=== PATIENT | male | born 1960 | race Caucasian/White ===

== ENCOUNTER → 2023-10-29 13:07 | Outpatient (REF) | payer MEDICARE, OTHER, SELFPAY | LOC: RAD 13:07 | PROVIDERS: ATTENDING PHYSICIAN Family Medicine | DX: S62.306D Unspecified fracture of fifth metacarpal bone, right hand, subsequent encounter for fracture with routine healing (principal) | CPT/HCPCS: 73130 ==

== ENCOUNTER 2024-12-03 05:09 | Emergency (ER) | payer MEDICARE, OTHER, SELFPAY ==
[2024-12-03 05:17] VITALS: BP 158/89; BMI 28.5
--- NOTE | 2024-12-03 06:13 | ED.GENMED ---
History of Present Illness
General
Chief Complaint: Seizure
Time Seen by Provider: 12/03/24 06:13
History of Present Illness
History of Present Illness:
TIME OF INITIAL ENCOUNTER: 6:15 AM
HPI: The patient has a history of early onset dementia which is relatively advanced. He lives at home with his . They were sleeping in the same bed to go this morning where noted seizure-like activity lasted for about 30 seconds. His
eyes rolled back. There is no new incontinence (normally is incontinent), and there was no tongue bite suazo. He seemed out of it for about 20 minutes and then improved. The patient cannot provide any meaningful history.
EXAM:
GENERAL: Appears in no distress, eyes are open
HEENT: Moist oral mucosa
CARDIOVASCULAR: Regular rate and rhythm
PULMONARY: No respiratory distress, breathing is nonlabored, equal and clear breath sounds
ABDOMEN: Soft and nontender with no peritoneal signs
NEUROLOGIC: The patient has evidence of dementia, not oriented to month or place, strength is equal in all extremities, does not follow any commands
EXTREMITIES: Moves all extremities equally, no tenderness, no edema
PYSCHIATRIC: Very limited historian, poor insight and judgment, flat affect
NUMBER AND COMPLEXITY OF PROBLEMS ADDRESSED AT THE ENCOUNTER
� Chronic conditions affecting care: Early onset Alzheimer's, atrial fibrillation status post ablation
� Acute Exacerbation and/or Progression of Chronic Illness: This is an acute problem
� Differential Diagnosis includes: First-time seizure, syncopal event, hypoglycemia, electrolyte abnormality
AMOUNT AND/OR COMPLEXITY OF DATA TO BE REVIEWED AND ANALYZED
� I performed an independent evaluation of and my interpretation is:
EKG: Sinus 72, normal axis, right bundle branch block
CT: CAT scan of the brain shows no acute abnormality
X-rays:
Laboratory Studies: CBC unremarkable, chemistries also unremarkable.
Other:
� Review of other/old records: I reviewed records. The patient was admitted with 'acute toxic metabolic encephalopathy' in May 2023. At that time the patient had increasing confusion
� Clinical information was obtained by an independent historian: I spoke to the at bedside
� Prescriptions/Medications Considered but not given:
� Further testing considered but not performed:
RISK OF COMPLICATIONS AND/OR MORBIDITY OR MORTALITY OF PATIENT MANAGEMENT
� Social determinants of health affecting care:
� Discussion with other providers: I discussed case with Dr. Mondragon who thinks 'it would be reasonable to start him on levetiracetam at 1000 mg twice daily
� Escalation of care including admission/observation vs risk of discharge considered: Early onset dementia since his early 50s now advanced. Was at home in bed with , had 30sec sz like activity, extremities shaking, eyes
rolled back. No new urinary incontinence nor tongue bite suazo. Gave ativan to facilitate CT which was negative. Normal bicarb. Was here w/ 'toxic metabolic encephalopathy' last year. No med changes. I don't really see anything to keep him
for. Afebrile and WBC 3.6. says they see [facility] virtually 2x per year and would like to see someone closer.
ANY OTHER UPDATES:
8:40 AM: I reassessed patient. The patient appears more sedate after given Ativan. However room air sats are 97% with normal respiratory rate. Never had any seizure-like activity here
Past History
Past History
ED Past Medical History: Other (dementia=Alzhemiers, Left foot drop, Pleural effusions, IBS, Renal calculus, Glaucoma) and Other (Pleural effusion status post rib fractures)
ED Past Surgical History: Orthopedic (L4-L5 surgery, Total right knee replacement) and Other (cataracts, )
Social History
Tobacco: Non-smoker
Alcohol: None
Drug: None
Personal:
Living: with family
Employment: Retired
Family History
Family History: Other
Phy Exam
Physical Exam
Physical Exam:
See HPI
Course
Orders/Labs/Results
Orders:
Orders
12/03/24 05:48
CMP [Comprehensive Metabolic Panel] Urgent
Complete Blood Count/With Diff Urgent
12/03/24 06:30
CT Head W/o Iv Contrast Urgent
Comment:
Reason For Exam: first time sz? h/o early dementia
Lorazepam [Ativan] 1 mg IV NOW STA
12/03/24 06:32
Electrocardiogram (*1) Urgent
Reason for Study: Syncope
EKG- Treatment ONCE
12/03/24 07:10
Electrocardiogram (*1) Urgent
Reason for Study: Other
Other Reason for Exam: seizure
12/03/24 07:11
EKG- Treatment ONCE
Abnormal Lab Results
12/03/24
05:48
MPV 11.0 H fL
(7.4-10.4)
Absolute Monos (auto) 0.7 H 10^3/uL
(0.1-0.6)
Lymphocytes % 16.6 L %
(20.5-51.1)
12/03/24 05:48
12/03/24 05:48
Vital Signs
Initial and Last Documented VS:
Initial Vital Signs
Temp Pulse BP Pulse Ox
37.1 C 84 158/89 96
12/03/24 05:17 12/03/24 05:17 12/03/24 05:17 12/03/24 05:17
Last Documented Vital Signs
Temp Pulse Resp BP Pulse Ox
37.1 C 69 16 104/60 100
12/03/24 05:17 12/03/24 08:07 12/03/24 08:07 12/03/24 08:00 12/03/24 07:49
*Critical Care Note
Total Time (30-74mins, 75-104mins- exclusive of procedures): Not Applicable
ED Attending Note
-
Portions of this chart may have been created with voice recognition software.� Occasional wrong word or��sound alike� substitutions may have occurred due to the inherent limitations of voice recognition software.
Discharge Plan
Departure
Patient Disposition: Home (Routine Discharge)
Date of Disposition: 12/03/24
Time of Disposition: 08:39
Patient with high blood pressure during this ER visit?: Yes
Discharge Problem:
Seizure
Instructions: Seizures, Adult (DC)
Prescriptions:
New
levetiracetam 1,000 mg tablet
1,000 mg PO BID Qty: 60 0RF
No Action
donepezil 10 MG tablet
10 mg PO HS
vitamin E 400 UNIT capsule
400 unit PO DAILY
cholecalciferol (vitamin D3) 5,000 UNIT tablet,disintegrating
5,000 unit PO DAILY
memantine 28 MG capsule,sprinkle,ER 24hr
28 mg PO HS
olanzapine 2.5 mg Tablet
2.5 mg PO HS
aspirin 81 mg Tablet,Chewable
81 mg PO DAILY
metoprolol succinate 25 mg Tablet Extended Release 24 Hr
25 mg PO BID
coenzyme Q10 30 mg Capsule
30 mg PO DAILY
mometasone 0.1 % Cream
1 applic TOPICAL DAILY
omega 8-lvt-afy-fish oil [Fish Oil] 1,000 mg (120 mg-180 mg) Capsule
1 cap PO BID
mecobalamin (vitamin B12) [B12 Active] 1,000 mcg Tablet,Chewable
1,000 mcg PO DAILY
Referrals:
Mary Kay Guerra MD [Non-Admitting Privileges] - As needed
UNKNOWN - PT DOES,NOT KNOW [Family Provider] -
Activity Restrictions/Additional Instructions:
The CAT scan of the brain shows no acute abnormality. The radiologist noted 'stable mild subcortical, deep, and periventricular white matter low-attenuation, compatible with changes of chronic small vessel ischemic disease'. Chemistry levels were
normal. White count and hemoglobin are normal. I did notify a neurologist here today, Dr. Brandt, who recommended trying Keppra 1000 mg twice daily (seizure medication) for now. He also recommends that you follow-up with the [facility]. I
did give the name of another local neurologist, Dr. Mary Kay Guerra.
Interventions
Interventions:
*Risk Screen - Suicide Last Done: 12/03/24 05:17
*General Assessment Last Done: 12/03/24 05:17
*Neglect/Abuse Screening Last Done: 12/03/24 05:17
*ED- Fall Risk Assessment Last Done: 12/03/24 07:22
*ED COVID-19 Vaccine History Last Done: 12/03/24 05:17
ED- Cardiac Assessment Last Done: 12/03/24 07:21
ED- Neurological Assessment Last Done: 12/03/24 07:21
ED- Pulmonary Assessment Last Done: 12/03/24 07:21
Discharge Date and Time
Print Language: EMIRATI
[2024-12-03] MEDS: ATIVAN 1 MG IV (06:32)
[2024-12-03 06:36] LABS: % Basophils 0.6 % (0-2); % Eosinophils 2.2 % (0-6); % Immature Granulocytes 0.3 % (0-0.5); % Lymphocytes 16.6 % (20.5-51.1); % Monocytes 8.4 % (1.7-9.3); % Neutrophils 71.9 % (42.2-75.2); Absolute Basophils 0.1 10^3/uL (0-0.2); Absolute Eosinophils 0.2 10^3/uL (0-0.7); Absolute Lymphocytes 1.3 10^3/uL (1.2-3.4); Absolute Monocytes 0.7 10^3/uL (0.1-0.6); Absolute Neutrophils 5.7 10^3/uL (1.4-6.5); Hematocrit 41.2 % (39.0-52.0); Hemoglobin 14.2 g/dL (13.0-18.0); Mean Corp Hgb Conc. 34.5 g/dL (33.0-37.0); Mean Corpuscular Volume 87.1 fL (80.0-94.0); Nucleated Red Blood Cells % 0 % (-); Platelet Count 178 10^3/uL (130-400); Red Blood Cell Count 4.73 10^6/uL (4.70-6.10); Red Cell Dist. Width 12.1 % (11.5-14.5); White Blood Cell Count 7.9 10^3/uL (4.8-10.8)
[2024-12-03 06:57] LABS: ALT (SGPT) 19 U/L (0-50); AST (SGOT) 23 U/L (17-59); Albumin 3.9 g/dl (3.5-5.0); Alkaline Phosphatase 62 U/L (38-126); Blood Urea Nitrogen 19 mg/dl (9-20); Calcium 9.3 mg/dl (8.4-10.2); Carbon Dioxide 26 mmol/L (22-30); Chloride 106 mmol/L (98-107); Estimated Creatinine Clearance 118 ml/min; Glucose 95 mg/dl (70-99); Potassium 4.2 mmol/L (3.5-5.1); Sodium 138 mmol/L (135-145); Total Bilirubin 0.9 mg/dl (0.2-1.3); Total Protein 6.4 g/dl (6.3-8.2); eGFR > 60.00
[2024-12-03 07:20] VITALS: BP 130/66
[2024-12-03 08:00] VITALS: BP 104/60
[2024-12-03 09:00] VITALS: BP 111/67
== END 2024-12-03 10:52 | disposition home or self-care (01) ==
LOC: EMR 05:09
PROVIDERS: Emergency Medicine; EMERGENCY PHYSICIAN Emergency Medicine
DX: R56.9 Unspecified convulsions (principal); R03.0 Elevated blood-pressure reading, without diagnosis of hypertension; I45.10 Unspecified right bundle-branch block; G30.0 Alzheimer's disease with early onset; F02.80 Dementia in other diseases classified elsewhere, unspecified severity, without behavioral disturbance, psychotic disturbance, mood disturbance, and anxiety; I48.91 Unspecified atrial fibrillation; M21.372 Foot drop, left foot; H40.9 Unspecified glaucoma; K58.9 Irritable bowel syndrome, unspecified; Z87.442 Personal history of urinary calculi; Z96.651 Presence of right artificial knee joint; Z79.82 Long term (current) use of aspirin
CPT/HCPCS: 99284; 96374; 70450; 80053; 85025; 93005

== ENCOUNTER 2025-06-17 14:18 | Emergency (ER) | payer MEDICARE, OTHER, SELFPAY ==
[2025-06-17 14:41] VITALS: BP 118/68
--- NOTE | 2025-06-17 14:44 | ED.GENMED ---
History of Present Illness
General
Chief Complaint: Change in Mental Status
Source: family
Time Seen by Provider: 06/17/25 14:30
History of Present Illness
History of Present Illness:
64-year-old male presents emergency department with reported change in mental status of concern to his . Patient has a history of early onset Alzheimer's. She states that at approximately 3 weeks ago she noticed a change in his mentation and
that he seemed to be 'lethargic disoriented and drooling'. She brought the patient to the primary care doctor who noted his lungs were clear and his pulse ox was 97%. The PCP gave the patient's antibiotic to use just in case the patient did
not get better. She did not give him these antibiotics because of patient spontaneously improved and was back to baseline. However, on Thursday evening, the patient seemed to be lethargic again. Overall she notes his urine seems darker than
usual without blood and it seems like he is urinating less than usual. After discussing this with the primary care doctor the decision was made to start the antibiotics on evening. Yesterday he seemed 'good all day'. However, this
morning she says he is not quite right. For example, he tipped gets up out of bed and walks across the room to get changed but he just sat on the bed and she changed him there. He also took a nap during the day today which is very unusual. When
he woke up from that nap he was walking around as usual and she thought he might be okay. However, he again started to 'nod off', causing her to be concerned that he may have a UTI that is not improving with the antibiotics. No history of fever,
chills, sweats, rhinorrhea. There is a slight cough noted which she thinks may be related to allergies. History very limited from patient given his history of dementia.
Past History
Past History
ED Past Medical History: Other (dementia=Alzhemiers, Left foot drop, Pleural effusions, IBS, Renal calculus, Glaucoma) and Other (Pleural effusion status post rib fractures)
ED Past Surgical History: Orthopedic (L4-L5 surgery, Total right knee replacement) and Other (cataracts, )
Social History
Tobacco: Non-smoker
Alcohol: None
Drug: None
Personal:
Living: with family
Employment: Retired
Family History
Family History: Other
Phy Exam
Physical Exam
Physical Exam:
GENERAL: Drowsy, eyes closed, will sometimes open, in no apparent distress
EYE: pupils equal and reactive, no photophobia
NECK: Supple, no significant adenopathy.
ENT: o/p clr, mmm.
CARDIAC: Regular rate and rhythm .
LUNGS: Clear breath sounds bilaterally, no acute respiratory distress, no wheezes/rales/rhonchi
ABDOMEN: Soft, without focal tenderness, no r/g
NEUROLOGICAL: Arousable but drowsy, does not follow commands, will spont speak at times, no facial droop
SKIN: Warm and dry, skin intact.
MUSCULOSKELETAL: No edema, well perfused.
PSYCH: Does not answer questions
Course
Orders/Labs/Results
Orders:
Orders
06/17/25 14:35
Complete Blood Count/With Diff Urgent
Comprehensive Metabolic Panel Urgent
Urinalysis Reflex To Culture Urgent
Date Specimen was Collected: 06/17/25
Time Specimen was Collected: 14:31
Urine Microscopic Reflex Cult Urgent
Urine Culture Urgent
SUNDEEP Source: U
Specimen Description:
Date Specimen was Collected: 06/17/25
Time Specimen was Collected: 14:31
06/17/25 14:43
CR Chest - 2 Views Urgent
Comment:
Reason For Exam: COUGH
06/17/25 15:00
COVID-19 Antigen Urgent
Source: Nasal Swab
Influenza A+B Rapid Molecular Urgent
SUNDEEP Source: Nasal Swab
Specimen Description:
Abnormal Lab Results
06/17/25
14:35
RBC 4.63 L 10^6/uL
(4.70-6.10)
MPV 11.5 H fL
(7.4-10.4)
Absolute Monos (auto) 0.8 H 10^3/uL
(0.1-0.6)
Lymphocytes % 16.6 L %
(20.5-51.1)
Monocytes % 11.7 H %
(1.7-9.3)
Urine Ketones 1+ A
(Negative)
Urine Urobilinogen 2+ A
(Neg - 1+)
Leukocyte Esterase Rfl 1+ A
(Negative)
Urine Bacteria (Reflex) Moderate A
(Negative)
Urine Albumin (Reflex) 1+ A
(Neg - Trace)
06/17/25 14:35
06/17/25 14:35
Vital Signs
Initial and Last Documented VS:
Initial Vital Signs
Temp Pulse Resp Pulse Ox
98.4 F 73 17 96
06/17/25 14:30 06/17/25 14:30 06/17/25 14:30 06/17/25 14:30
Last Documented Vital Signs
Temp Pulse Resp BP Pulse Ox
98.4 F 58 13 117/77 97
06/17/25 14:30 06/17/25 15:00 06/17/25 15:00 06/17/25 15:00 06/17/25 15:00
*Pulse Oximetry
SaO2: 96
Oxygen Mode of Delivery: Room air
Patient hypoxic: no
*Critical Care Note
Total Time (30-74mins, 75-104mins- exclusive of procedures): Not Applicable
Update Note
Update Note:
Patient presents to the Emergency Department with ___mental status change
Number and Complexity of Problems Addressed at the Encounter
� Chronic conditions affecting care:
� Acute Exacerbation and/or Progression of Chronic Illness:
� Differential Diagnosis includes: But not limited to COVID, flu, UTI, pneumonia, etc. etc.
Amount and/or Complexity of Data to be Reviewed and Analyzed
� I performed an independent evaluation of and my interpretation is:
EKG:
CT:
Xrays: Chest x-ray read by me unremarkable
Laboratory Studies: Unremarkable, no findings to suggest acute UTI
Other:
� Review of other/old records reveals:
� Clinical information was obtained by an independent historian: who is at bedside and offers medication list and full history
� Prescriptions/Medications Considered but not given:
� Further testing considered but not performed:
Risk of Complications and/or Morbidity or Mortality of Patient Management
� Social determinants of health affecting care:
� Discussion with other providers (PCP, Hospitalists, Consultants, etc):
� Escalation of care including admission/observation vs risk of discharge considered: Patient 4:41 PM is now awake and alert, interactive, at times laughs at jokes. states this is his baseline. Unclear specific reason for
patient's waxing and waning sleepiness however doubt acute intracranial process given no recent head injury, not on thinners, etc. No focal findings here. Workup unremarkable for acute event such as infection, electrolyte abnormality, etc.
would like to take patient home with close follow-up which is reasonable. Discussed with her importance of follow-up and reasons return to the ER.
ED Attending Note
-
Portions of this chart may have been created with voice recognition software.� Occasional wrong word or��sound alike� substitutions may have occurred due to the inherent limitations of voice recognition software.
Discharge Plan
Departure
Patient Disposition: Home (Routine Discharge)
Date of Disposition: 06/17/25
Time of Disposition: 16:40
Patient with high blood pressure during this ER visit?: No
Condition: Good
Discharge Problem:
Altered mental status
Instructions: Altered Mental Status (DC), Dementia (DC)
Prescriptions:
No Action
donepezil 10 MG tablet
10 mg PO HS
vitamin E 400 UNIT capsule
400 unit PO DAILY
cholecalciferol (vitamin D3) 5,000 UNIT tablet,disintegrating
5,000 unit PO DAILY
memantine 28 MG capsule,sprinkle,ER 24hr
28 mg PO HS
olanzapine 2.5 mg Tablet
2.5 mg PO HS
aspirin 81 mg Tablet,Chewable
81 mg PO DAILY
metoprolol succinate 25 mg Tablet Extended Release 24 Hr
25 mg PO BID
coenzyme Q10 30 mg Capsule
30 mg PO DAILY
mometasone 0.1 % Cream
1 applic TOPICAL DAILY
omega 6-iju-rxi-fish oil [Fish Oil] 1,000 mg (120 mg-180 mg) Capsule
1 cap PO BID
mecobalamin (vitamin B12) [B12 Active] 1,000 mcg Tablet,Chewable
1,000 mcg PO DAILY
levetiracetam 1,000 mg tablet
1,000 mg PO BID Qty: 60 0RF
Referrals:
Nicolette Maldonado DO [Family Provider, Family Practice] - Follow up in 2-3 days
Activity Restrictions/Additional Instructions:
IF TIANA DEVELOPS HIGH FEVER, REPEATED VOMITING, LETHARGY, TROUBLE BREATHING, OR OTHER WORRISOME SIGNS, PLEASE RETURN TO THE ER IMMEDIATELY !!
Interventions
Interventions:
*Risk Screen - Suicide Last Done: 06/17/25 14:39
*General Assessment Last Done: 06/17/25 14:39
*Neglect/Abuse Screening Last Done: 06/17/25 14:39
*ED- Fall Risk Assessment Last Done: 06/17/25 14:39
*ED COVID-19 Vaccine History Last Done: 06/17/25 14:39
*ED Influenza Vaccine History Last Done: 06/17/25 14:39
ED- Neurological Assessment Last Done: 06/17/25 14:41
Discharge Date and Time
Print Language: MALTESE
[2025-06-17 14:45] LABS: Hematocrit 41.4 % (39.0-52.0); Hemoglobin 13.8 g/dL (13.0-18.0); Mean Corp Hgb Conc. 33.3 g/dL (33.0-37.0); Mean Corpuscular Volume 89.4 fL (80.0-94.0); Nucleated Red Blood Cells % 0 % (-); Platelet Count 185 10^3/uL (130-400); Red Cell Dist. Width 11.8 % (11.5-14.5)
[2025-06-17 14:53] LABS: Urine Character Slightly Cloudy (Clear)
[2025-06-17 15:00] VITALS: BP 117/77
[2025-06-17 15:11] LABS: ALT (SGPT) 21 U/L (0-50); AST (SGOT) 23 U/L (17-59); Albumin 3.5 g/dl (3.5-5.0); Alkaline Phosphatase 54 U/L (38-126); Blood Urea Nitrogen 16 mg/dl (9-20); Calcium 9.2 mg/dl (8.4-10.2); Carbon Dioxide 29 mmol/L (22-30); Chloride 104 mmol/L (98-107); Glucose 74 mg/dl (70-99); Potassium 5.0 mmol/L (3.5-5.1); Sodium 137 mmol/L (135-145); Total Protein 6.5 g/dl (6.3-8.2); eGFR > 60.00
[2025-06-17 15:13] LABS: Urine Squamous Cell 0-2 /LPF (Few)
[2025-06-17 15:14] LABS: Urine Red Blood Cell 0-2 /HPF (0-2)
[2025-06-17 15:39] LABS: COVID-19 Antigen Negative (Negative)
== END 2025-06-17 20:00 | disposition home or self-care (01) ==
LOC: EMR 14:18
PROVIDERS: EMERGENCY PHYSICIAN Emergency Medicine; FAMILY PHYSICIAN Family Medicine
DX: R41.82 Altered mental status, unspecified (principal); G30.0 Alzheimer's disease with early onset; F02.80 Dementia in other diseases classified elsewhere, unspecified severity, without behavioral disturbance, psychotic disturbance, mood disturbance, and anxiety; H40.9 Unspecified glaucoma; K58.9 Irritable bowel syndrome, unspecified; Z96.651 Presence of right artificial knee joint
CPT/HCPCS: 99284; 71046; 80053; 81003; 81015; 85025; 87086; 87502; 87811

== ENCOUNTER 2025-06-20 18:31 | Inpatient (IN) | payer MEDICARE, OTHER, SELFPAY ==
[2025-06-20 13:49] VITALS: BP 122/88
[2025-06-20 13:52] VITALS: BMI 30.4
[2025-06-20 14:00] VITALS: BP 116/70
[2025-06-20 14:32] LABS: Hematocrit 42.0 % (39.0-52.0); Hemoglobin 14.4 g/dL (13.0-18.0); Mean Corp Hgb Conc. 34.3 g/dL (33.0-37.0); Mean Corpuscular Volume 88.2 fL (80.0-94.0); Nucleated Red Blood Cells % 0 % (-); Platelet Count 219 10^3/uL (130-400); Red Cell Dist. Width 11.6 % (11.5-14.5)
[2025-06-20 14:33] LABS: Urine Character Clear (Clear)
[2025-06-20 15:00] VITALS: BP 122/69
[2025-06-20 15:05] LABS: ALT (SGPT) 26 U/L (0-50); AST (SGOT) 43 U/L (17-59); Albumin 3.8 g/dl (3.5-5.0); Alkaline Phosphatase 51 U/L (38-126); Blood Urea Nitrogen 16 mg/dl (9-20); Calcium 9.1 mg/dl (8.4-10.2); Carbon Dioxide 26 mmol/L (22-30); Chloride 104 mmol/L (98-107); Estimated Creatinine Clearance > 125 ml/min; Glucose 101 mg/dl (70-99); Potassium 4.7 mmol/L (3.5-5.1); Sodium 137 mmol/L (135-145); Total Protein 6.9 g/dl (6.3-8.2); Urine Squamous Cell 0-2 /LPF (Few); eGFR > 60.00
[2025-06-20 15:06] LABS: Urine Red Blood Cell 0-2 /HPF (0-2); Urine White Cell 0-2 /HPF (0-5)
--- NOTE | 2025-06-20 15:21 | ED.GENMED ---
History of Present Illness
<Nidia Ortega PA-C - Last Filed: 06/20/25 21:51>
General
Chief Complaint: Change in Mental Status
Source: records and spouse
Exam Limitations: dementia
Time Seen by Provider: 06/20/25 15:02
History of Present Illness
History of Present Illness:
64yoM with a history of early onset dementia, seizures on Keppra, and chronic left foot drop presenting with his for evaluation of altered mental status. reports a fairly sudden change in his mental status about a week ago. She noticed
that he was drooling and having trouble swallowing. He was also having sleepiness and waxing and waning alertness. She called his PCP regarding his symptoms and he was started on cefdinir for presumed UTI. He was seen in the ED 3 days ago for the
symptoms. He had an unremarkable workup including a urinalysis and a chest x-ray and was ultimately discharged. reports that patient is having significant difficulty ambulating. Up until about a week ago, patient was able to walk around the
block. He is now having trouble standing. She was able to get him from the bed to the kitchen yesterday but had to call EMS to get him back into bed. She is worried that he may have had a seizure and is requesting a head CT. She also is
wondering if he may have ankle injury as he twisted it 1 week ago after a fall. She denies any recent seizures. No vomiting, diarrhea, choking episodes, fevers.
Past History
<Nidia Ortega PA-C - Last Filed: 06/20/25 21:51>
Past History
ED Past Medical History: Other (dementia=Alzhemiers, Left foot drop, Pleural effusions, IBS, Renal calculus, Glaucoma) and Other (Pleural effusion status post rib fractures)
ED Past Surgical History: Orthopedic (L4-L5 surgery, Total right knee replacement) and Other (cataracts, )
Social History
Tobacco: Non-smoker
Alcohol: None
Drug: None
Personal:
Living: with family
Employment: Retired
Family History
Family History: Other
Phy Exam
<Nidia Ortega PA-C - Last Filed: 06/20/25 21:51>
Physical Exam
Physical Exam:
Appears fatigued
General Physical Exam
General Presentation: well appearing and no apparent distress
General Skin: warm and dry
General Habitus: normal
General Mental: alert
ENT Exam
ENT Exam: normocephalic
Eye Exam
Eye Exam: PERRL and conjunctiva normal
Cardiovascular Exam
Cardiovascular Exam: regular rate/rhythm
Pulmonary Exam
Pulmonary Exam: lungs clear, no respiratory distress, no rales, no crackles, no rhonchi and no wheezing
Neurological Exam
Neurological Exam: alert
Musculoskeletal Exam
Musculoskeletal Exam: other (R ankle: No soft tissue swelling noted. No obvious tenderness. )
Skin Exam
Skin Exam: normal color and warm/dry
Course
<Nidia Ortega PA-C - Last Filed: 06/20/25 21:51>
Orders/Labs/Results
Orders:
Orders
06/20/25 13:57
Complete Blood Count/With Diff Urgent
Comprehensive Metabolic Panel Urgent
TSH Urgent
Comment: ADD ON
Urinalysis Reflex To Culture Urgent
Date Specimen was Collected: 06/20/25
Time Specimen was Collected: 13:55
Urine Microscopic Reflex Cult Urgent
Vitamin B12 Urgent
Comment: ADD ON
06/20/25 14:54
Case Management Consult ONCE
Case Management Consult: Discharge Planning
Requested By:: NURSING
Comment: looking into Pallitative Care, home PT/OT - hx of dementia, increasing needs at home
06/20/25 Dinner
NPO
Allow oral meds: Yes
Allow clear liquids: Sips of Clears
NPO with Ice Chips: Yes
06/20/25 15:20
CR Ankle - Right Min 3 Views * Urgent
Comment:
Reason For Exam: injury
06/20/25 15:21
Add On- LAB Urgent
Tests Added?: TSH
CT Head W/o Iv Contrast Urgent
Comment:
Reason For Exam: AMS
06/20/25 15:22
Electrocardiogram (*1) Urgent
Reason for Study: Fatigue / Weakness
EKG- Treatment ONCE
06/20/25 15:28
CR Chest - 2 Views Urgent
Comment:
Reason For Exam: difficulty swallowing
06/20/25 17:36
Add On- LAB Routine
Tests Added?: B12 level
06/20/25 17:38
Add On- LAB Routine
Tests Added?: TSH w/ reflex T4
06/20/25 17:54
Admit/Transfer Patient As Directed
Co-Sign Provider:
Level of Care: Inpatient admission
Assign to:: Medical/Surgical
Physician / Group: wanda fowler
Diagnosis: AMS
Reason for Hospitalization: AMS
Expected length of stay greater than two midnights?: Yes
ELOS- Estimated Length of Stay in days: 2
I certify the patient meets the requirements for IP care: Yes
PRN Pain Medication Management As Directed
May give lesser potent ordered pain med per pt: Yes
preference::
Protocol:: Medication orders for pain may be administered in a
manner that supports deferring to patient preference
when the pt is:
- Requesting an ordered lesser potent pain medication.
Least to most potent pain medications are defined
as: acetaminophen < NSAID < tramadol < opioids
(morphine, oxycodone, hydromorphone).
- Requesting a lesser dose of the same medication IF
ORDERED.
- Requesting a less intrusive route of administration
if both routes are prescribed by the provider (PO <
IV).
06/20/25 17:56
Code Status As Directed
Resuscitation Status: Do not resuscitate
Reached after discussion with pt or family/Healthcare POA: Yes
06/20/25 17:57
DNR Bracelet Application ONCE
06/20/25 18:01
Add On- LAB Routine
Tests Added?: alcohol level
Urine Drug Abuse Screen Routine
06/20/25 20:53
0.9% Sodium Chloride 1000 ml [Nss] 1,000 ml IV 75 mls/hr
Acetaminophen [Tylenol] 650 mg PO Q4HPRN PRN
Bisacodyl [Dulcolax] 10 mg RECTAL [id number] PRN
Enoxaparin Sodium [Lovenox] 40 mg SC QPM
Metoprolol Xl [Toprol Xl] 25 mg PO BID
06/20/25 20:53
NEUROLOGY CONSULT Routine
Consulting Provider: Manish Brandt
Was physician already notified: Yes
Activity As Directed
Activity Level: Ambulate
Vital Signs As Directed
Frequency: Per unit guidelines
Ot Eval And Treat Routine
Pt Eval And Treat Routine
Activity Level: Ambulate
Speech Therapy Eval & Treat Routine
DX Deep Vein Thrombosis Video Routine
06/20/25 22:00
Donepezil HCl [Aricept] 10 mg PO HS
Levetiracetam [Keppra] 1,000 mg PO BID
Memantine HCl [Namenda] 10 mg PO BID
Olanzapine [Zyprexa] 5 mg PO HS
06/21/25 06:00
Ammonia IN AM
Creatine Phosphokinase IN AM
Magnesium IN AM
06/21/25 08:00
Aspirin Chewable [Low Strength Aspirin] 81 mg PO DAILY
Abnormal Lab Results
06/20/25
13:57
MPV 11.6 H fL
(7.4-10.4)
Absolute Monos (auto) 1.1 H 10^3/uL
(0.1-0.6)
Lymphocytes % 15.8 L %
(20.5-51.1)
Monocytes % 13.4 H %
(1.7-9.3)
Glucose 101 H mg/dl
(70-99)
Total Bilirubin 1.4 H mg/dl
(0.2-1.3)
Urine Albumin (Reflex) 1+ A
(Neg - Trace)
06/20/25 13:57
06/20/25 13:57
Vital Signs
Initial and Last Documented VS:
Initial Vital Signs
Pulse Resp
78 17
06/20/25 13:40 06/20/25 13:40
Last Documented Vital Signs
Temp Pulse Resp BP Pulse Ox
98.0 F 68 20 120/72 95
06/20/25 21:01 06/20/25 21:01 06/20/25 21:01 06/20/25 21:01 06/20/25 21:01
<Bhavin Ureña, DO - Last Filed: 06/20/25 17:19>
Orders/Labs/Results
Orders:
Orders
06/20/25 13:57
Complete Blood Count/With Diff Urgent
Comprehensive Metabolic Panel Urgent
TSH Urgent
Comment: ADD ON
Urinalysis Reflex To Culture Urgent
Date Specimen was Collected: 06/20/25
Time Specimen was Collected: 13:55
Urine Microscopic Reflex Cult Urgent
Vitamin B12 Urgent
Comment: ADD ON
06/20/25 14:54
Case Management Consult ONCE
Case Management Consult: Discharge Planning
Requested By:: NURSING
Comment: looking into Pallitative Care, home PT/OT - hx of dementia, increasing needs at home
06/20/25 Dinner
NPO
Allow oral meds: Yes
Allow clear liquids: Sips of Clears
NPO with Ice Chips: Yes
06/20/25 15:20
CR Ankle - Right Min 3 Views * Urgent
Comment:
Reason For Exam: injury
06/20/25 15:21
Add On- LAB Urgent
Tests Added?: TSH
CT Head W/o Iv Contrast Urgent
Comment:
Reason For Exam: AMS
06/20/25 15:22
Electrocardiogram (*1) Urgent
Reason for Study: Fatigue / Weakness
EKG- Treatment ONCE
06/20/25 15:28
CR Chest - 2 Views Urgent
Comment:
Reason For Exam: difficulty swallowing
06/20/25 17:36
Add On- LAB Routine
Tests Added?: B12 level
06/20/25 17:38
Add On- LAB Routine
Tests Added?: TSH w/ reflex T4
06/20/25 17:54
Admit/Transfer Patient As Directed
Co-Sign Provider:
Level of Care: Inpatient admission
Assign to:: Medical/Surgical
Physician / Group: wanda fowler
Diagnosis: AMS
Reason for Hospitalization: AMS
Expected length of stay greater than two midnights?: Yes
ELOS- Estimated Length of Stay in days: 2
I certify the patient meets the requirements for IP care: Yes
PRN Pain Medication Management As Directed
May give lesser potent ordered pain med per pt: Yes
preference::
Protocol:: Medication orders for pain may be administered in a
manner that supports deferring to patient preference
when the pt is:
- Requesting an ordered lesser potent pain medication.
Least to most potent pain medications are defined
as: acetaminophen < NSAID < tramadol < opioids
(morphine, oxycodone, hydromorphone).
- Requesting a lesser dose of the same medication IF
ORDERED.
- Requesting a less intrusive route of administration
if both routes are prescribed by the provider (PO <
IV).
06/20/25 17:56
Code Status As Directed
Resuscitation Status: Do not resuscitate
Reached after discussion with pt or family/Healthcare POA: Yes
06/20/25 17:57
DNR Bracelet Application ONCE
06/20/25 18:01
Add On- LAB Routine
Tests Added?: alcohol level
Urine Drug Abuse Screen Routine
06/20/25 20:53
0.9% Sodium Chloride 1000 ml [Nss] 1,000 ml IV 75 mls/hr
Acetaminophen [Tylenol] 650 mg PO Q4HPRN PRN
Bisacodyl [Dulcolax] 10 mg RECTAL [id number] PRN
Enoxaparin Sodium [Lovenox] 40 mg SC QPM
Metoprolol Xl [Toprol Xl] 25 mg PO BID
06/20/25 20:53
NEUROLOGY CONSULT Routine
Consulting Provider: Manish Brandt
Was physician already notified: Yes
Activity As Directed
Activity Level: Ambulate
Vital Signs As Directed
Frequency: Per unit guidelines
Ot Eval And Treat Routine
Pt Eval And Treat Routine
Activity Level: Ambulate
Speech Therapy Eval & Treat Routine
DX Deep Vein Thrombosis Video Routine
06/20/25 22:00
Donepezil HCl [Aricept] 10 mg PO HS
Levetiracetam [Keppra] 1,000 mg PO BID
Memantine HCl [Namenda] 10 mg PO BID
Olanzapine [Zyprexa] 5 mg PO HS
06/21/25 06:00
Ammonia IN AM
Creatine Phosphokinase IN AM
Magnesium IN AM
06/21/25 08:00
Aspirin Chewable [Low Strength Aspirin] 81 mg PO DAILY
Abnormal Lab Results
06/20/25
13:57
MPV 11.6 H fL
(7.4-10.4)
Absolute Monos (auto) 1.1 H 10^3/uL
(0.1-0.6)
Lymphocytes % 15.8 L %
(20.5-51.1)
Monocytes % 13.4 H %
(1.7-9.3)
Glucose 101 H mg/dl
(70-99)
Total Bilirubin 1.4 H mg/dl
(0.2-1.3)
Urine Albumin (Reflex) 1+ A
(Neg - Trace)
06/20/25 13:57
06/20/25 13:57
Vital Signs
Initial and Last Documented VS:
Initial Vital Signs
Pulse Resp
78 17
06/20/25 13:40 06/20/25 13:40
Last Documented Vital Signs
Temp Pulse Resp BP Pulse Ox
98.0 F 68 20 120/72 95
06/20/25 21:01 06/20/25 21:01 06/20/25 21:01 06/20/25 21:01 06/20/25 21:01
Brandtlt;Nidia Ortega PA-C - Last Filed: 06/20/25 21:51>
MDM/Problems Addressed
Differential Diagnosis Includes:
64yoM here with a change in mental status. 2nd ED visit in the past 3 days for the same. reports drooling, waxing and waning alertness, and trouble ambulating. EMS had to be called yesterday to help him in bed. VSS. He appears fatigued but
is otherwise well-appearing in no distress. Differential diagnosis includes but is not limited to: CVA, delirium, progression of dementia, thyroid dysfunction, UTI
Initial ED plan: Workup initiated in triage. CBC and CMP largely unremarkable. UA bland without signs of infection. Will add on TSH, EKG, head CT, and right ankle x-rays. Case management consulted.
<Nidia Ortega PA-C - Last Filed: 06/20/25 21:51>
*Pulse Oximetry
SaO2: 96
Oxygen Mode of Delivery: Room air
Patient hypoxic: no
*EKG
Interpreted by ED Provider?: Yes
EKG Intrepretation Date: 06/20/25
Heart Rate: 73
Rate: normal
Rhythm: sinus
[place]: normal axis
Interval: normal interval
QRS Pattern: normal QRS
Ischemia: no ischemia
*Critical Care Note
Total Time (30-74mins, 75-104mins- exclusive of procedures): Not Applicable
<Nidia Ortega PA-C - Last Filed: 06/20/25 21:51>
Update Note
Update Note:
CT head negative for acute findings. TSH within normal limits. Chest x-ray as well as ankle x-rays are normal. Given inability to ambulate and acute change in mental status, will admit for neurology evaluation and further management. in
agreement with plan.
ED Attending Note
<Nidia Ortega PA-C - Last Filed: 06/20/25 21:51>
-
Portions of this chart may have been created with voice recognition software.� Occasional wrong word or��sound alike� substitutions may have occurred due to the inherent limitations of voice recognition software.
<Bhavin Ureña DO - Last Filed: 06/20/25 17:19>
ED Attending Note
Patient seen and examined by attending physician: Yes
ED Attending Note:
I have reviewed and agree with history and plan by Nidia Ortega PA-C. Patient with new immobility and change in mental status. Unclear etiology, possibly Alzheimer's progression. No signs of trauma. Will admit for further evaluation.
Ultimately patient's wants to take him home, but it is unsafe for discharge at this time.
Discharge Plan
Departure
Patient Disposition: Admit
Date of Disposition: 06/20/25
Time of Disposition: 17:13
Presentation/result/management discussed w/ accepting MD/DO: Hospitalist
Discharge Problem:
Altered mental status
Interventions
Interventions:
*Risk Screen - Suicide Last Done: 06/20/25 13:49
*General Assessment Last Done: 06/20/25 13:49
*Neglect/Abuse Screening Last Done: 06/20/25 13:53
*ED- Fall Risk Assessment Last Done: 06/20/25 13:54
*ED COVID-19 Vaccine History Last Done: 06/20/25 13:54
*ED Influenza Vaccine History Last Done: 06/20/25 13:54
*Nursing Disposition Last Done: 06/20/25 20:39
ED- Pulmonary Assessment Last Done: 06/20/25 20:38
ED-Psychological Assessment Last Done: 06/20/25 20:38
ED- Neurological Assessment Last Done: 06/20/25 13:52
ED- Cardiac Assessment Last Done: 06/20/25 20:38
ED Swallowing Screen Last Done: 06/20/25 13:51
Discharge Date and Time
Discharge Date/Time: 06/20/25 20:40
--- NOTE | 2025-06-20 16:42 | EDCM ---
CM received consult and reviewed chart. Met with pt's bedside in ED. Lives with in 2 story home, they live in the first floor. Bathroom has walk in shower.
Up until a week ago, pt was independent in ambulation, needs assistance with ADLs and personal care. Now having difficulty standing and walking.
Pt has a caregiver through [employer] that comes 2 days a week to assist with personal care.
Per his , she asked PCP for referral to Palliative Care, she researched this and the only [facility] that comes to [place] and makes home visits is [facility]. She also asked for V[facility] referral but has not heard from anyone yet.
Discussed with Miriam ARMENTA, she is hoping to admit pt for further workup.
CM will continue to follow for all discharge planning needs.
[2025-06-20 16:45] LABS: TSH 1.50 uIU/ml (0.47-4.68)
--- NOTE | 2025-06-20 17:36 | HPS.HSE ---
Family Physician
-
Family Physician: Nicolette Maldonado
Chief Complaint
-
AMS
History of Present Illness
64-year-old male with a past medical history of early onset Alzheimer's dementia, IBS, atrial fibrillation status post ablation, left foot drop, lumbar disc herniation, and seizure episode who was brought in by his spouse for altered mental status.
Patient's spouse reports that for the past week, he has been exhibiting increased drooling, periods of somnolence and stupor, and worsening ambulatory dysfunction. Patient was seen by his general practitioner, who prescribed cefdinir for possible
urinary tract infection. He has been taking it since Thursday, for 4 days. denies nausea, vomiting, shortness of breath. She does report that he has more phlegm at night. No fever at home. Patient was last normal on 06/13/2025. He
is usually independent with ambulation. Today he had difficulty even standing.
Medical History
Past Medical History
Past Medical History: Reports Other
Additional Past Medical History:
Early onset Alzheimer's dementia, onset 2009
Irritable bowel syndrome
Paroxysmal Atrial Fibrillation
Lumbar DDD
L Foot Drop due to lumbar disc herniation
Multiple Rib Fractures / Pneumothorax / Pleural Effusion (10/2021)
Osteoarthritis
Dilated aortic root
Seizure episode
Past Surgical History: Reports Other
Additional Past Surgical History:
Right TKA
Thoracentesis
PVI Ablation
Thumb Surgery
Laminectomy
Right eye cataract removal
Social History
Tobacco: Non-smoker
Alcohol: None
Drug: None
Personal:
Living: With Family
Family History
Family History: Not pertinent
Allergies / Home Medications
Allergies reflects when Allergies were last updated in [facility].
Home Medications with original date entered in [facility]
Allergy/Medication List:
Allergies
Allergy/AdvReac Type Severity Reaction Status Date / Time
No Known Allergies Allergy Verified 06/20/25 13:51
Home Medications Table - record
�Medication �Instructions �Recorded �Confirmed
cholecalciferol (vitamin D3) 125 5,000 unit PO DAILY Supplement 10/13/18 05/28/23
mcg (5,000 unit) disintegrating
tablet
donepezil 10 mg tablet 10 mg PO HS Neurological Condition 10/13/18 05/28/23
vitamin E 268 mg (400 unit) capsule 400 unit PO DAILY Supplement 10/13/18 05/28/23
memantine 28 mg capsule 28 mg PO HS Neurological Condition 11/30/20 05/28/23
sprinkle,extended release 24hr
aspirin 81 mg chewable tablet 81 mg PO DAILY Blood Clot 05/28/23 05/28/23
Prevention/Tx
coenzyme Q10 30 mg capsule 30 mg PO DAILY 05/28/23 05/28/23
mecobalamin (vitamin B12) 1,000 1,000 mcg PO DAILY Supplement 05/28/23 05/28/23
mcg chewable tablet (B12 Active)
metoprolol succinate 25 mg 25 mg PO BID 05/28/23 05/28/23
tablet,extended release 24 hr
mometasone 0.1 % topical cream 1 applic topical DAILY 05/28/23 05/28/23
olanzapine 2.5 mg tablet 2.5 mg PO HS Neurological Condition 05/28/23 05/28/23
omega [id number]-fish oil 1,000 mg 1 cap PO BID 05/28/23 05/28/23
(120 mg-180 mg) capsule (Fish Oil)
levetiracetam 1,000 mg tablet 1,000 mg PO BID #60 tabs 12/03/24
Review of Systems
-
Unable to obtain full review of systems at this time due to: Dementia
Physical Exam
Vital Signs
Vital Signs
Temp Pulse Resp BP Pulse Ox
98.3 F 72 17 122/69 96
06/20/25 13:49 06/20/25 17:00 06/20/25 17:00 06/20/25 15:00 06/20/25 15:21
Physical Exam
General: No Apparent Distress
HEENT: NormoCephalic, Anicteric and Moist mucous membranes
Respiratory: Clear
Cardiac: S1/S2
GI: Soft, Non Tender and Non Distended
Musculoskeletal: No Clubbing, No Cyanosis and No Edema
Skin: Warm and Dry
Neuro: Awake and Other (Pleasantly confused, mumbles and rambles)
Laboratory Results
-
06/20/25 13:57
06/20/25 13:57
Laboratory Results
Total Bilirubin 1.4 mg/dl (0.2-1.3) H 06/20/25 13:57
AST 43 U/L (17-59) 06/20/25 13:57
ALT 26 U/L (0-50) 06/20/25 13:57
Alkaline Phosphatase 51 U/L (38-126) 06/20/25 13:57
Impression/Plan
-
HPI: 64-year-old male with a past medical history of early onset Alzheimer's dementia, IBS, atrial fibrillation status post ablation, left foot drop, lumbar disc herniation, and seizure episode who was brought in by his spouse for altered mental
status. Patient's spouse reports that for the past week, he has been exhibiting increased drooling, periods of somnolence and stupor, and worsening ambulatory dysfunction. Patient was seen by his general practitioner, who prescribed cefdinir for
possible urinary tract infection. He has been taking it since Thursday, for 4 days. denies nausea, vomiting, shortness of breath. She does report that he has more phlegm at night. No fever at home. Patient was last normal on Thursday,
06/13/2025. He is usually independent with ambulation. Today he had difficulty even standing.
#Altered mental status
#Early Alzheimer's dementia onset [address] neg, urine analysis and chest x-ray negative for infection
Increased drooling, somnolence, waxing waning mentation
Check vitamin B12 levels, TSH with reflex T4, consult neurology
Continue Aricept, Namenda, Zyprexa, Seroquel as needed
#History of seizure episodes
Continue Keppra
#Drooling
Consult SPL to evaluate for dysphagia
#Ambulatory dysfunction
Consult PT/OT
#Paroxysmal atrial fibrillation
Status post ablation
Currently in normal sinus rhythm
Continue aspirin, Toprol XL
DVT prophylaxis�subcu Lovenox
DNR confirmed with upon admission
Total time spent to see the patient on the floor, examine the patient, review data and lab results, discuss treatment plan with patient, nursing staff around 75 minutes.
[2025-06-20 18:41] LABS: Vitamin B12 745 pg/ml (239-931)
[2025-06-20 20:59] VITALS: BMI 26.5
[2025-06-20 21:01] VITALS: BP 120/72; BMI 26.5
[2025-06-20] MEDS: TOPROL XL 25 MG PO (21:21)
[2025-06-20] MEDS: NAMENDA 10 MG PO (21:21)
[2025-06-20] MEDS: ZYPREXA 5 MG PO (21:22)
[2025-06-20] MEDS: ARICEPT 10 MG PO (21:22)
[2025-06-20] MEDS: NSS 1000 IV (21:22)
[2025-06-20] MEDS: KEPPRA 1000 MG PO (21:22)
[2025-06-20] MEDS: LOVENOX 40 MG SC (21:22)
[2025-06-20 23:23] VITALS: BP 98/69
[2025-06-21 07:09] LABS: Ammonia 12 umol/L (9-30)
[2025-06-21 07:28] LABS: Magnesium 2.1 mg/dl (1.6-2.3)
[2025-06-21 07:34] VITALS: BP 108/56
--- NOTE | 2025-06-21 08:27 | W.PN.HOSP.TC ---
Today's Communication/Plan
-
Continue PT evaluations
Assessment / Plan
Assessment / Plan
HPI: 64-year-old male with a past medical history of early onset Alzheimer's dementia, IBS, atrial fibrillation status post ablation, left foot drop, lumbar disc herniation, and seizure episode who was brought in by his spouse for altered mental
status. Patient's spouse reports that for the past week, he has been exhibiting increased drooling, periods of somnolence and stupor, and worsening ambulatory dysfunction. Patient was seen by his general practitioner, who prescribed cefdinir for
possible urinary tract infection. He has been taking it since Thursday, for 4 days. denies nausea, vomiting, shortness of breath. She does report that he has more phlegm at night. No fever at home. Patient was last normal on Thursday,
06/13/2025. He is usually independent with ambulation. Today he had difficulty even standing.
#Altered mental status
#Early Alzheimer's dementia onset [address] neg, urine analysis and chest x-ray negative for infection
Increased drooling, somnolence, waxing waning mentation
B12 level /TSH WNL, UDS neg
Appreciate neurology input, EEG shows generalized slowing consistent with severe dementia
Unclear etiology for patient's waxing waning mental status, states that he is back to normal mentation locke today 06/21
Continue Aricept, Namenda, Zyprexa, Seroquel as needed
#Ambulatory dysfunction
Patient not cooperative with PT/OT today, he is refusing to stand
Unable to discharge patient home with until he is able to ambulate
#History of seizure episodes
Continue Keppra
#Drooling
Appreciate SPL input, cleared for regular diet with thin liquids
#Paroxysmal atrial fibrillation
Status post ablation
Currently in normal sinus rhythm
Continue aspirin, Toprol XL
DVT prophylaxis�subcu Lovenox
DNR confirmed with upon admission
Updated at bedside 06/21
Total time spent to see the patient on the floor, examine the patient, review data and lab results, discuss treatment plan with patient, nursing staff around 50 minutes.
Physical Exam
General: No acute distress
HEENT: Normocephalic, Atraumatic, EOMI, MMM
Respiratory: Clear to Auscultation bilaterally
Cardiac: Normal S1/S2, Regular Rate and Rhythm
GI: Soft, Nontender, Nondistended, Normal Bowel Sounds
Extremities: No Clubbing, Cyanosis, or Edema
Neuro: Mumbles, oriented to person, pleasantly confused
Psych: Intermittent agitation noted
Anticipated Discharge: 24 - 48 hours
Subjective/Interval History
-
Date of Service: June 21, 2025
Patient seen and examined with at bedside. She reports that his mental status has returned to baseline. She is still concerned about his weakness and ambulatory dysfunction, which is the reason why she brought him to the ER. No fever, no
vomiting.
Objective Data
-
Vital Signs:
Vital Signs
Temp Pulse Resp BP Pulse Ox
99.0 F 64 18 108/56 97
06/21/25 07:34 06/21/25 07:34 06/21/25 07:34 06/21/25 07:34 06/21/25 07:34
I&O
06/20/25 06/21/25 06/22/25
06:59 06:59 06:59
Intake Total 525 / 525
Balance 525 / 525
[2025-06-21] MEDS: NAMENDA PO (08:56)
--- NOTE | 2025-06-21 08:56 | CON.NEURO4 ---
Addendum entered and electronically signed by Manish Brandt MD 06/21/25 13:18:
Studies reviewed.
I have personally examined the patient. I reviewed and agree with the ARTIFICIAL INSEMINATION TECHNICIAN's Note.
My addenda:
Awake, minimally interactive. No acute distress. Closes eyes after stimulation immediately
Speech dysarthric with short phrases.
Unable to follow 2-step requests, does not follow single step requests. Intermittent medium amplitude myoclonic movements of the right greater than left upper extremities. There are occasional proximal myoclonic movements
Extra-ocular movements grossly intact.
Facial movements full and symmetric. Hearing intact to normal conversational volume.
Normal UE movements bilaterally.
Neck: full ROM.
Chest: no dyspnea
Heart: no JVD
Ext: (-) Clubbing, (-) Cyanosis, (-) Edema
IMPRESSIONS/RECOMMENDATIONS:
Abrupt onset of worsening mentation with longstanding diagnosis of early onset Alzheimer's disease. Of concern is that the patient has previously been diagnosed as having seizures with myoclonus
Check EEG to ensure no recurrent seizures producing symptoms
Patient's myoclonus may be secondary to underlying disease. There is no evidence that the patient is utilizing medications which might produce myoclonus with exception of levetiracetam which can also be used to remediate myoclonus
Provide thiamine for completeness
Check blood work potential metabolic causes
Utilize both donepezil and memantine
D/W patient / family / nursing
All questions answered.
Will continue to follow peripherally.
Original Note:
Consultation - Neurology 4
-
CONSULTING PHYSICIAN: Manish Brandt MD
REFERRING PHYSICIAN: Hospitalists/Dr. Burton
DICTATED BY: SHARON Peoples
DATE/TIME OF REQUEST: 06/20/25
DATE/TIME OF CONSULTATION: 06/21/25
Reason for Consultation: Change in mental status
History of Present Illness:
This is a 64-year-old male who has presented to the hospital with report of change in mental status. Patient has Alzheimer's dementia, diagnosed about 13 years ago, and is followed by Neurology Dr. Siddiqi at [facility] as an outpatient. Patient's
spouse at bedside reports that
From outpatient Neurology encounter by Dr. Gabe Siddiqi on 03/31/2025:
'Luisito Tijerina is a 64 y.o. male with a severe dementia level of impairment due to Alzheimer's disease. To his 's knowledge, he is having no seizures. She notes that he is hitting more. At times it seems like he is joking and she notes that he
is not striking out with his full force. She doesn't think he's angry and she has not been injured. Around the same time that this has been happening, his sleep pattern has changed. He had been sleeping 9am to 9pm. Now he gets up early, at times as
early as 5:30am. He also dozes during the day. He has an aide that comes three six-hour shifts per week. He requires assistance with all basic activities of daily living and generally requires someone to be in the room with him because he often at
risk of falling. At this point, doctor's visits are very difficulty because he won't let anyone do anything with his body. His notes that an intermittent tremor in his right hand is increasing. His appetite remains pretty good, though he
increasingly needs to be prompted to eat; he doesn't ask for food. His mood is generally ok, though he is sometimes resistant to care. He enjoys interacting with people, although his speech is hard to comprehend. '
Patient's spouse at bedside reports that about three weeks ago he became lethargic, was drooling frequently, and seemed to have phlegm at that back of his throat. She called his PCP who ordered antibiotics, but he seemed to improve over the next
two days so he didn't end up taking them. Then one week ago on 06/14/25 she reports that he became lethargic again and was 'in a stupor.' He started antibiotics on 06/15/25 and seemed to improve until four days ago on 06/17/25 when he became lethargic
again and wasn't walking like he typically does, prompting her to bring him to the ER for evaluation. Workup was unremarkable and he was discharged home, but they returned again on 06/20/25 due to ongoing symptoms. CT head was obtained on arrival and
is negative for any acute abnormalities. Patient's spouse reports that he had a seizure-like event in November 2024 and was started on levetiracetam 1000mg twice a day at that time. He had some agitation/hitting behavior over the summer months and he
was started on trazodone at bedtime. This behavior seemed to resolve and there was no adjustment made in his antiseizure medication. She notes that his right hand tremor has been worse over the past 6 months. She held his trazodone the past several
days due to lethargy. She reports that he had a PET scan and 2 spinal taps in at the [facility] to confirm a diagnosis of Alzheimer's disease, he has not had blood testing. Patient's speech is currently incoherent, she notes that
this is his baseline at times.
Past Medical History: Alzheimer's dementia, Afib (s/p ablation, not on OAC), seizure-like event, IBS, left foot drop, lumbar disc herniation, multiple rib fractures, pneumothorax, pleural effusion, osteoarthritis
Surgical History: R TKR, cardiac ablation, thoracentesis, laminectomy, right eye cataract removal
Family History: Reviewed and noncontributory.
Social History: Denies tobacco, alcohol, and illicit drug use.
Allergies: No known allergies.
Home Medications: See below.
Review of Symptoms:
Unable to obtain a ROS due to aphasia.
Physical Exam:
The patient is afebrile, abdomen is nondistended, breathing is unlabored, skin is warm and dry, no edema.
Neurologic Examination:
The patient is lethargic, opens eyes to loud voice. Unable to answer orientation questions. He is able to follow some commands. Speech is garbled/mostly incoherent. On cranial nerve assessment, pupils are 3 mm bilateral, round and reactive to light
and accommodation. MAXINE visual hidalgo/EOMS, +tracks in all directions. There is no facial asymmetry. Hearing is intact bilaterally to normal conversation volume. Tongue palate and uvula are midline. Sternocleidomastoid strengths are full bilaterally.
Motor strengths are 5/5 bilateral upper and lower extremities on medical research [place] scale. There is no drift. There is generalized intermittent myoclonus. Low amplitude semi rhythmic tremor in distal RUE. Deep tendon reflexes are 2+ bilateral
upper and lower extremities and Babinski is absent bilaterally. MAXINE sensation, double simultaneous, coordination.
Lab Results: See below.
Neuro Imaging:
1. CT Head 06/20/25: Stable. No acute intracranial abnormality.
Differentials for the patient's presentation include:
1. Change in mental status; uncertain etiology. Possibilities include seizure activity given significant myoclonus on exam and elevated creatine kinase level, progression of chronic neurodegenerative process, or metabolic abnormality contributing
to symptoms.
Patient has the following risk factors for their symptoms: Hx seizure, elevated CK, myoclonus on exam
Recommendations:
-EEG pending.
-Continue levetiracetam 1000mg q12hrs.
-Checking blood work for metabolic abnormalities.
-Provide thiamine replacement.
-DVT prophylaxis.
-Avoid sedating medications. Promote daylight exposure, minimize night-time disturbances to reduce risk of delirium.
Discussed patient care with: Dr. Brandt, the patient, patient's spouse
Vital Signs and Labs
-
Vital Signs and Labs:
Vital Signs
Temp Pulse Resp BP Pulse Ox
99.0 F 64 18 108/56 97
06/21/25 07:34 06/21/25 07:34 06/21/25 07:34 06/21/25 07:34 06/21/25 07:34
Lab Results
06/20/25 13:57
06/20/25 13:57
Sodium 137 mmol/L (135-145) 06/20/25 13:57
Potassium 4.7 mmol/L (3.5-5.1) 06/20/25 13:57
BUN 16 mg/dl (9-20) 06/20/25 13:57
Glucose 101 mg/dl (70-99) H 06/20/25 13:57
Calcium 9.1 mg/dl (8.4-10.2) 06/20/25 13:57
Vitamin B12 745 pg/ml (239-931) 06/20/25 13:57
Ur Buprenorphine Negative (Negative) 06/21/25 05:39
Medications
-
Active Medications
Generic Name Dose Route Start Last Admin
Trade Name Freq PRN Reason Stop Dose Admin
Acetaminophen 650 mg 06/20/25 20:53
Acetaminophen 325 Mg Tablet PO 07/18/25 20:52
Q4HPRN PRN
mild pain/ALVAREZ/temp> 100.4F
Aspirin 81 mg 06/21/25 08:00 06/21/25 09:19
Aspirin 81 Mg Chewable Tablet PO 07/19/25 07:59 81 mg
DAILY PRABHU Administration
Bisacodyl 10 mg 06/20/25 20:53
Bisacodyl 10 Mg Rectal Suppository RECTAL 07/18/25 20:52
[id number] PRN
constipation
Donepezil HCl 10 mg 06/20/25 22:00 06/20/25 21:22
Donepezil Hcl 10 Mg Tablet PO 07/18/25 21:59 10 mg
HS PRABHU Administration
Enoxaparin Sodium 40 mg 06/20/25 20:53 06/20/25 21:22
Enoxaparin Sodium 40 Mg/0.4 Ml Syringe SC 07/18/25 20:52 40 mg
QPM PRABHU Administration
Sodium Chloride 1,000 mls @ 75 mls/hr 06/20/25 20:53 06/21/25 11:22
Nss IV 1,000 mls
.[id number] PRABHU Administration
Levetiracetam 1,000 mg 06/20/25 22:00 06/21/25 09:19
Levetiracetam 500 Mg Regular Release Tablet PO 07/18/25 21:59 1,000 mg
BID PRABHU Administration
Memantine 10 mg 06/20/25 22:00 06/21/25 08:56
Memantine 10 Mg Tablet PO 07/18/25 21:59 Not Given
BID PRABHU
Metoprolol Succinate 25 mg 06/20/25 20:53 06/21/25 09:19
Metoprolol 25 Mg Extended Release Tablet PO 07/18/25 20:52 25 mg
BID PRABHU Administration
Olanzapine 5 mg 06/20/25 22:00 06/20/25 21:22
Olanzapine 5 Mg Tablet PO 07/18/25 21:59 5 mg
HS PRABHU Administration
Sodium Chloride 0 flush 06/20/25 21:00
Sodium Chloride 0.9% (Flush) Syringe IV 07/18/25 20:59
PER PROTOCOL PRABHU
Thiamine HCl 100 mg 06/21/25 11:00 06/21/25 11:22
Thiamine 100 Mg Tablet PO 06/23/25 08:01 100 mg
DAILY PRABHU Administration
Home Medications
�Medication �Instructions �Recorded
cholecalciferol (vitamin D3) 125 5,000 unit PO DAILY Supplement 10/13/18
mcg (5,000 unit) disintegrating
tablet
donepezil 10 mg tablet 10 mg PO HS Neurological Condition 10/13/18
memantine 28 mg capsule 28 mg PO HS Neurological Condition 11/30/20
sprinkle,extended release 24hr
aspirin 81 mg chewable tablet 81 mg PO DAILY Blood Clot 05/28/23
Prevention/Tx
mecobalamin (vitamin B12) 1,000 3,750 mcg PO Q48H Supplement 05/28/23
mcg chewable tablet (B12 Active)
metoprolol succinate 25 mg 25 mg PO BID Blood Pressure 05/28/23
tablet,extended release 24 hr
levetiracetam 100 mg/mL oral 1,000 mg PO BID Neurological 06/21/25
solution (Keppra) Condition
olanzapine 5 mg tablet 5 mg PO HS Mental Health/Anxiety 06/21/25
quetiapine 25 mg tablet (Seroquel) 25 mg PO DAILYPRN PRN going to 06/21/25
appointments
tacrolimus 0.1 % topical ointment 1 applic topical DAILYPRN PRN face 06/21/25
rash
[2025-06-21] MEDS: TOPROL XL 25 MG PO (09:19)
[2025-06-21] MEDS: KEPPRA 1000 MG PO (09:19)
[2025-06-21] MEDS: LOW STRENGTH ASPIRIN 81 MG PO (09:19)
[2025-06-21 10:05] LABS: C-Reactive Protein 61.00 mg/L (0.0-10.00)
[2025-06-21 10:20] LABS: Troponin I < 0.012 ng/ml
--- NOTE | 2025-06-21 10:51 | PTOTSP ---
Speech Therapy Swallowing Assessment
Patient's cognitive status and dependence with feeding in setting of Alzheimer's disease places patient at elevated risk for dysphagia with current acute illness elevating risk for aspiration. Patient tolerated oral trials today with intermittent
mild oral phase disorganization but without overt signs of aspiration. Discussed with the results and recommendation of bedside assessment including strategies and equipment that may be helpful with feeding swallowing difficulties that may
arise with advancing dementia.
Recommend
1. Regular solids and Thin Liquids
2. Meds crushed in applesauce.
3. Supervision/feeding assist with oral intake and medication administration.
4. Upright with all intake
5. Aspiration precautions
ST will follow briefly to ensure diet tolerance.
[2025-06-21] MEDS: VITAMIN B1 100 MG PO (11:22)
[2025-06-21] MEDS: NSS 1000 IV (11:22)
--- NOTE | 2025-06-21 12:21 | EEG.RPT ---
Electroencephalogram Report
Recording
Date of EE06/21/25
Type of EEG: Routine
Length of EEG recordin minutes
Done with Video Recording: Yes
Patient Status: Inpatient
Recording Conditions: Awake and Drowsy
Hyperventilation Performed: No
Photic Stimulation Performed: Yes
Report
GREATER THAN 1 HOUR REPORT
EEG INTERPRETATION:
Mild to moderately abnormal EEG for age mild diffuse bihemispheric slowing
CLINICAL CORRELATION:
This study was suggestive of diffuse cortical dysfunction without focal abnormality. No seizures were recorded. If concerns remain regarding seizures, consideration for prolonged EEG recording may be given.
Clinical correlation is advised.
METHODS:
A 21 channel digitized electroencephalogram (EEG) was performed. The 10/20 international system of electrode placement was used with ECG and lateral/vertical eye movements recorded. The [employer] quantitative measurement system was utilized.
QUALITY OF STUDY:
Good
ELECTROENCEPHALOGRAPHER IMPRESSION(S):
Background
Medium amplitude fairly to poorly organized anterior-posterior voltage gradient of theta maximal activity
There were no significant asymmetries of background activity noted.
Sleep
Drowsiness present
Photic Stimulation
Failed to activate the record
ECG
Normal sinus rhythm
[2025-06-21 12:31] LABS: Folate > 20.0 ng/ml (2.76-20); Vitamin B12 762 pg/ml (239-931)
[2025-06-21] MEDS: SEROQUEL 25 MG PO (14:48)
[2025-06-21 14:51] VITALS: BMI 26.5
--- NOTE | 2025-06-21 15:08 | PTCARENOTE ---
Patient combative with care and physical therapy. MD made aware. Pt ordered PRN Seroquel. MD orders to give and try PT again in 30-60 minutes. PT aware.
--- NOTE | 2025-06-21 15:25 | CM ---
Reviewed the chart notes and spoke the patient's spouse at the bedside. Discussed VN services. Patient has had [facility] in past. [facility] accepted in [facility]. CM continues to be available to patient/family and is monitoring medical plan for
needs at discharge.
Plan: Discharge to home with [facility] services when medically stable.
Fax report to: [phone]
[2025-06-21 15:37] VITALS: BP 135/75
--- NOTE | 2025-06-21 16:11 | PTCARENOTE ---
Patient not able to follow commands. Unable to do orthostatic VS.
--- NOTE | 2025-06-21 16:59 | W.DCSUMMARY ---
Discharge Summary
Discharge Data
Date of Admission: 06/20/25
Date of Discharge: 06/21/25
-
Pending Results: No
Hospital Course
Discharge diagnosis:
Alzheimer's dementia with waxing waning mental status
Ambulatory dysfunction
History of seizure episode
Increased drooling
Paroxysmal atrial fibrillation status post ablation
Consults: Neurology
Head CT:
Stable. No acute intracranial abnormality.
Hospital course:
64-year-old male with a past medical history of early onset Alzheimer's dementia, IBS, atrial fibrillation status post ablation, left foot drop, lumbar disc herniation, and seizure episode was brought in by his for waxing waning mental status
and new onset ambulatory dysfunction. reports that he has been having periods of hypersomnolence, stupor, with increased drooling. Patient's head CT was negative. He was seen in conjunction of neurology. Vitamin B12 levels were normal, TSH
was normal, UDS neg, and chest x-ray/urine analysis all negative for infection. Patient had an EEG which showed generalized slowing consistent with advanced dementia. Neurology states that the etiology for patient's waxing/waning mental status is
unclear.
Patient was seen in conjunction with speech pathology for concerns of dysphagia. Per speech pathology, he does not have any signs or symptoms of dysphagia. He was cleared for and tolerated a regular diet with thin liquids.
By the following day, patient's mentation returned to baseline per . Patient was seen in conjunction with PT. He was uncooperative, and refused to stand with PT. He became agitated. Patient's then requested discharge to take him home as
he tends to get more confused if he stays in the hospital another night. Patient is discharged per 's request. He needs to follow-up with his PCP in 1 week, and his usual neurologist in the office in 2-3 weeks.
Disposition: Home self-care
Discharge planning: Required 50 min
Discharge Plan
-
Patient Disposition: Home with Home Care
Discharge Diagnosis/Procedures: Early onset Alzheimer's dementia with intermittent agitation
Condition: Fair
Diet: Regular
Activity: As tolerated
Referrals:
Nicolette Maldonado DO [Family Provider, Family Practice] - in less than 1 week
Prescriptions:
New
thiamine mononitrate (vit B1) 100 mg Tablet
100 mg PO DAILY Qty: 30 0RF
Continued
donepezil 10 MG tablet
10 mg PO HS
cholecalciferol (vitamin D3) 5,000 UNIT tablet,disintegrating
5,000 unit PO DAILY
memantine 28 MG capsule,sprinkle,ER 24hr
28 mg PO HS
aspirin 81 mg Tablet,Chewable
81 mg PO DAILY
metoprolol succinate 25 mg Tablet Extended Release 24 Hr
25 mg PO BID
mecobalamin (vitamin B12) [B12 Active] 1,000 mcg Tablet,Chewable
3,750 mcg PO Q48H
quetiapine [Seroquel] 25 mg Tablet
25 mg PO DAILYPRN PRN (Reason: going to appointments)
olanzapine 5 mg Tablet
5 mg PO HS
tacrolimus 0.1 % Ointment
1 applic TOPICAL DAILYPRN PRN (Reason: face rash)
levetiracetam [Keppra] 100 mg/mL Solution
1,000 mg PO BID
Discharge Orders:
Discharge Patient (As Directed); Ordered 06/21/25
Ordered By: Bradley Burton
Discharge Date and Time
Discharge Date/Time: 06/21/25 18:52
Print Language: KHMER
[2025-06-21] MEDS: LOVENOX SC (17:24)
[2025-06-21] MEDS: FLUZONE (6 mos+) 2025-2026 FORMULA 0.5 ML IM (17:47)
== END 2025-06-21 18:52 | disposition home health service (06) | DRG 57 ==
LOC: 2 NORTH 18:31
PROVIDERS: ADMITTING PHYSICIAN Family Medicine; CONSULT PHYSICIAN Psychiatry & Neurology Neurology; EMERGENCY PHYSICIAN Emergency Medicine; FAMILY PHYSICIAN Family Medicine
DX: G30.0 Alzheimer's disease with early onset (principal); F02.C4 Dementia in other diseases classified elsewhere, severe, with anxiety; Z66 Do not resuscitate; G25.3 Myoclonus; I48.0 Paroxysmal atrial fibrillation
CPT/HCPCS: 70450; 71046; 73610; 80053; 80306; 81003; 81015; 82140; 82550; 82607; 82746; 83735; 84443; 84484; 85025; 85652; 86140; 87086; 87502; 87811; 90656; 92610; 93005; 95813; 97163; 97167; 97530; 99284; 99285; G0008